=== PATIENT | male | born 1960 | race Caucasian/White ===

== ENCOUNTER → 2017-10-11 | Outpatient (CLI) | payer OTHER ==
[~2017-10-11] VITALS: Ht 188 cm; Wt 92.7 kg
[~2017-10-11] MED LIST: ASPIRIN 81M81 MG/TA2 PO; COSAMIN DS 4001 TAB PO; MULTIPLE VITAMI1 CAP PO; PROPECIA1 MG PO; SINGULAIR 110 MG/TAB PO
[2017-10-11 11:49] VITALS: BP 139/87; PULSE 67
[2017-10-11 13:28] VITALS: BP 156/100; PULSE 63
[2017-10-11 13:45] VITALS: BP 155/97
[2017-10-11 13:50] VITALS: BP 146/82; PULSE 67
== END ==
LOC: COL.RAD 11:42
DX: M54.12 Radiculopathy, cervical region (principal)
CPT/HCPCS: J1100

== ENCOUNTER → 2021-08-29 | Outpatient (CLI) | payer OTHER | LOC: COL.LAB 08:07 | DX: Z01.89 Encounter for other specified special examinations (principal) ==

== ENCOUNTER → 2022-03-23 | Outpatient (CLI) | payer OTHER | LOC: COL.LAB 06:48 | DX: Z01.89 Encounter for other specified special examinations (principal) ==

== ENCOUNTER → 2023-11-22 | Outpatient (CLI) | payer MEDICARE, OTHER | LOC: COL.LAB 08:44 | DX: Z01.89 Encounter for other specified special examinations (principal) ==